=== PATIENT | male | born 2000 | race Caucasian/White ===

== ENCOUNTER 2024-03-26 17:15 | Emergency (ER) | payer OTHER ==
[~2024-03-26] VITALS: Ht 185.4 cm; Wt 137.0 kg
[2024-03-26] MEDS: DIPHENHYDRAMINE 50MG/ML VIAL IM ONE ×2 (17:40→20:00)
[2024-03-26] MEDS: DIPHENHYDRAMINE 50MG/ML VIAL IM STA (17:40)
[2024-03-26] MEDS: HALOPERIDOL LACTATE 5MG/ML VIAL IM STA (17:40)
[2024-03-26] MEDS: MIDAZOLAM HCL 2 MG/2 ML VIAL IM ONE ×3 (18:40→19:23)
[2024-03-26] MEDS: OLANZAPINE 10 MG/VIAL IM ONE (18:57)
[2024-03-26] MEDS: LORAZEPAM 2MG/ML INJ IM ONE (18:57)
[2024-03-26] MEDS ORDERED: MIDAZOLAM HCL 2 MG/2 ML VIAL IM ONE (19:00)
[2024-03-26] MEDS ORDERED: HALOPERIDOL LACTATE 5MG/ML VIAL IM NR (19:00)
[2024-03-26] MEDS ORDERED: DIPHENHYDRAMINE 50MG/ML VIAL IM NR (19:00)
[2024-03-26 19:39] LABS: HEMATOCRIT. 41.4 % (42.0-52.0); HEMOGLOBIN. 13.4 g/dL (14.0-18.0); MEAN CORPUSCULAR HEMOGLOBIN 25.6 pg (28.0-32.0); MEAN CORPUSCULAR HGB CONC 32.4 g/dL (31.0-37.0); MEAN CORPUSCULAR VOLUME 79.1 fL (80.0-94.0); MEAN PLATELET VOLUME 8.8 fl (7.4-10.4); PLATELET 353 x1000/uL (130-400); RED BLOOD CELL COUNT 5.23 mill/uL (4.7-6.1); RED CELL DISTRIBUTION WIDTH 15.7 % (11.6-14.6); WHITE BLOOD COUNT 12.2 x1000/uL (4.5-11.0)
[2024-03-26] MEDS: SODIUM CHLORIDE 0.9% 1,000 ML IV ONE (19:39)
[2024-03-26 19:42] LABS: DIFFERENTIAL COMMENT 1
[2024-03-26 19:44] LABS: CHLORIDE 109 mEq/L (98-107); POTASSIUM 3.7 mEq/L (3.5-5.1); SODIUM 141 mEq/L (136-145)
[2024-03-26 19:45] LABS: CALCIUM 9.8 mg/dL (8.7-10.4); CARBON DIOXIDE 22 mEq/L (21-32)
[2024-03-26 19:50] LABS: CREATININE 1.3 mg/dL (0.6-1.3); GLUCOSE 106 mg/dL (70-105); UREA NITROGEN BLOOD 14 mg/dL (9-23)
[2024-03-26 19:52] LABS: ACETAMINOPHEN < 2 ug/mL (10-30)
[2024-03-26 19:53] LABS: AMMONIA 53 uMol/L (<32)
[2024-03-26 19:56] LABS: ETHANOL BLOOD < 10 mg/dL (<10)
[2024-03-26 21:00] VITALS: O2SAT 99
[2024-03-26 21:09] LABS: ANISOCYTOSIS 1+; MICROCYTOSIS 1+; PLATELET ESTIMATE NORMAL
[2024-03-26 21:47] LABS: TROPONIN I HIGH SENSITIVITY 22 ng/L (3.0-53)
[2024-03-26 21:52] LABS: THYROID STIMULATING HORMONE 0.75 uIU/mL (0.55-4.78)
[2024-03-27] MEDS: BUPROPION HCL 75MG TABLET PO NR (11:05)
[2024-03-27] MEDS: SERTRALINE HCL 100MG TABLET PO SCH (11:05)
[2024-03-28 01:19] LABS: CLARITY URINE CLEAR (CLEAR); COLOR URINE YELLOW (YELLOW); GLUCOSE URINE NEGATIVE (NEGATIVE); KETONES URINE NEGATIVE (NEGATIVE); LEUKOCYTE ESTERASE URINE TRACE (NEGATIVE); NITRITE URINE NEGATIVE (NEGATIVE); OCCULT BLOOD URINE NEGATIVE (NEGATIVE); PH URINE 6.5 (4.5-8.0); PROTEIN URINE NEGATIVE (NEGATIVE); SPECIFIC GRAVITY URINE 1.006 (1.005-1.030); UROBILINOGEN URINE 0.2 E.U./dL (0.2-1.0)
[2024-03-28 01:26] LABS: *AMPHETAMINES SCREEN URINE NEGATIVE (NEGATIVE); *BARBITURATES SCREEN URINE NEGATIVE (NEGATIVE); *BENZODIAZEPINES SCREEN URINE PRESUMPTIVE POSITIVE (NEGATIVE); *COCAINE SCREEN URINE NEGATIVE (NEGATIVE)
[2024-03-28 01:27] LABS: CANNABINOID URINE SCREEN PRESUMPTIVE POSITIVE (NEGATIVE); ECSTASY MDMA SCREEN URINE NEGATIVE (NEGATIVE); METHADONE URINE SCREEN NEGATIVE (NEGATIVE); OPIATES URINE SCREEN NEGATIVE (NEGATIVE); PHENCYCLIDINE URINE SCREEN NEGATIVE (NEGATIVE)
[2024-03-28 01:33] LABS: BACTERIA URINE TRACE; RBC URINE 0-2 /hpf (0-2); SQUAMOUS EPITHELIAL CELL URINE FEW /lpf (RARE/1+); WBC URINE 0-2 /hpf (0-2)
[2024-03-28 09:59] VITALS: BP 140/90; PULSE 100; RESP 19; TEMP 98.3
[2024-03-28] MEDS ORDERED: OLANZAPINE 5MG TABLET ODT PO SCH (21:00)
== END 2024-03-28 09:59 | disposition home or self-care (01) ==
LOC: ER 17:15
DX: F23 Brief psychotic disorder (principal); F19.90 Other psychoactive substance use, unspecified, uncomplicated; F32.A Depression, unspecified
CPT/HCPCS: 80305; 80048; 81003; 80307; 80329; 80320; 82140; 83880; 84443; 85025; 84484; 36415; 71045; 70450; 96360; 96372; 99285; J3490; J1200; J1630; J2060; J2250; J7030; Z7610; G0480